=== PATIENT | female | born 1960 | race Caucasian/White ===

== ENCOUNTER 2019-11-16 16:28 | Inpatient (IN) ==
[2019-11-16] MEDS ORDERED: Ipratropium/Albuterol Neb 3 ML IH ONE (16:34)
[2019-11-16] MEDS ORDERED: Albuterol 2.5 MG/3 ML NEBULIZER IH ONE (16:34)
[2019-11-16] MEDS ORDERED: methylPREDNISolone 125 MG/2 ML VIAL IVP ONE (16:34)
[2019-11-16 16:54] LABS: Basophils % 0.2 %; Eosinophils % 0.3 %; Hematocrit 44.3 % (35.3-44.9); Hemoglobin 14.2 g/dL (11.5-15.4); Immature Granulocytes % 0.4 % (0-4); Lymphocytes # 1.1 K/mcL (0.6-4.6); Lymphocytes % 8.2 %; Mean Corpuscular HGB Conc 32.1 g/dL (31.6-35.5); Mean Corpuscular Hemoglobin 30.5 pg (28.0-33.3); Mean Corpuscular Volume 95.3 fL (83.0-100.0); Monocytes # 0.5 K/mcL (0.0-1.3); Monocytes % 3.5 %; Neutrophils # 11.3 K/mcL (1.6-8.9); Platelet Count 223 K/mcL (140-400); Red Blood Count 4.65 M/mcL (3.82-4.97); Red Cell Distribution Width 12.9 % (11.5-14.5); Segmented Neutrophils % 87.4 %; White Blood Count 12.9 K/mcL (4.3-11.1)
[2019-11-16 16:57] LABS: VBG HCO3 31 mEq/L (21-27); VBG PCO2 62 mmHg (41-51); VBG PH 7.31 pH Units (7.32-7.42); VBG PO2 104 mmHg (25-50)
[2019-11-16 16:58] LABS: Prothrombin Time 11.3 Seconds (9.4-12.1)
[2019-11-16 16:59] LABS: Activated Partial Thrombo Time 32.9 Seconds (26.0-36.0)
[2019-11-16] MEDS ORDERED: Isovue-370 500 ML BOTTLE IVP ONE (17:12)
[2019-11-16 17:29] LABS: Alanine Aminotransferase 29 Units/L (7-52); Albumin 4.2 g/dL (3.5-5.7); Albumin/Globulin Ratio 1.4 (1.1-2.2); Alkaline Phosphatase 86 Units/L (34-104); Aspartate Amino Transferase 29 Units/L (13-39); BUN/Creatinine Ratio 21 (6-26); Bilirubin,Direct 0.1 mg/dL (0.0-0.2); Bilirubin,Indirect 0.3 mg/dL (0.0-1.0); Bilirubin,Total 0.4 mg/dL (0.3-1.0); Blood Urea Nitrogen 13 mg/dL (8-23); Calcium 9.3 mg/dL (8.6-10.3); Carbon Dioxide 30 mEq/L (23-29); Chloride 102 mEq/L (98-107); Globulin 3.1 g/dL (2.4-3.5); Glucose 117 mg/dL (70-105); Osmolality,Calculated 289 (280-300); Potassium 4.2 mEq/L (3.5-5.1); Sodium 139 mEq/L (136-145); Total Protein 7.3 g/dL (6.4-8.9); Troponin I < 0.03 ng/mL (< 0.04); eGFR For African Americans > 60 (> 60); eGFR For Non-African Americans > 60 (> 60)
[2019-11-16] MEDS ORDERED: Azithromycin 500 MG in 0.9 % Sodium Chloride 250 ML IVPB ONE (17:35)
[2019-11-16] MEDS ORDERED: cefTRIAXone 1,000 MG in Water for inj. (sterile) 10 ML IVP ONE (17:35)
[2019-11-16] MEDS ORDERED: 0.9 % Sodium Chloride 1,000 ML IVC SCH (20:15)
[2019-11-16] MEDS ORDERED: *HR* OxyCODONE/APAP 7.5/325 TABLET PO PRN (22:39)
[2019-11-16] MEDS: *HR* Heparin 5,000 UNIT/ML VIAL SQ SCH (22:52)
[2019-11-16] MEDS: methylPREDNISolone 125 MG/2 ML VIAL IVP SCH (22:54)
[2019-11-16] MEDS ORDERED: *HR* LORazepam 2 MG/ML VIAL IVP ONE (22:59)
[2019-11-17] MEDS ORDERED: Ipratropium/Albuterol Neb 3 ML IH SCH
[2019-11-17] MEDS ORDERED: *HR* Metoprolol 5 MG/5 ML VIAL IVP ONE (00:10)
[2019-11-17 00:28] LABS: Adenovirus Not Detected (Not Detect); Bordetella Pertussis Not Detected (Not Detect); Chlamydophila pneumoniae Not Detected (Not Detect); Coronavirus 229E Not Detected (Not Detect); Coronavirus HKU1 Not Detected (Not Detect); Coronavirus NL63 Not Detected (Not Detect); Coronavirus OC43 Not Detected (Not Detect); Human Metapneumovirus DETECTED (Not Detect); Human Rhinovirus/Enterovirus Not Detected (Not Detect); Influenza A Subtype 2009 H1 Not Detected (Not Detect); Influenza B Not Detected (Not Detect); Mycoplasma pneumoniae Not Detected (Not Detect); Parainfluenza Virus 1 Not Detected (Not Detect); Parainfluenza Virus 2 Not Detected (Not Detect); Parainfluenza Virus 3 Not Detected (Not Detect); Parainfluenza Virus 4 Not Detected (Not Detect); Respiratory Syncytial Virus Not Detected (Not Detect)
[2019-11-17 01:11] LABS: ABG Base Excess 4 mEq/L (-2 to 3); ABG HCO3 33 mEq/L (21-27); ABG Oxygen Saturation 99 % (95-98); ABG PCO2 67 mmHg (35-45); ABG PO2 152 mmHg (85-104); ABG TCO2 35 mEq/L (20-26)
[2019-11-17] MEDS ORDERED: Morphine Sulfate 2 MG/ML SYRINGE IVP ONE (01:18)
[2019-11-17] MEDS: Ipratropium/Albuterol Neb 3 ML IH PRN (01:31)
[2019-11-17] MEDS ORDERED: Morphine Sulfate 2 MG/ML SYRINGE IVP PRN (02:52)
[2019-11-17 03:04] LABS: Basophils % 0.1 %; Hematocrit 43.9 % (35.3-44.9); Hemoglobin 14.1 g/dL (11.5-15.4); Immature Granulocytes % 0.3 % (0-4); Lymphocytes # 0.6 K/mcL (0.6-4.6); Lymphocytes % 6.7 %; Mean Corpuscular HGB Conc 32.1 g/dL (31.6-35.5); Mean Corpuscular Hemoglobin 30.8 pg (28.0-33.3); Mean Corpuscular Volume 95.9 fL (83.0-100.0); Mean Platelet Volume 11.1 fL (9.4-12.4); Monocytes # 0.1 K/mcL (0.0-1.3); Monocytes % 0.7 %; Neutrophils # 8.7 K/mcL (1.6-8.9); Platelet Count 240 K/mcL (140-400); Red Blood Count 4.58 M/mcL (3.82-4.97); Segmented Neutrophils % 92.2 %; White Blood Count 9.4 K/mcL (4.3-11.1)
[2019-11-17 03:12] LABS: INR 1.1; Prothrombin Time 12.1 Seconds (9.4-12.1)
[2019-11-17 03:29] LABS: Alanine Aminotransferase 30 Units/L (7-52); Albumin 4.3 g/dL (3.5-5.7); Albumin/Globulin Ratio 1.3 (1.1-2.2); Alkaline Phosphatase 87 Units/L (34-104); Aspartate Amino Transferase 30 Units/L (13-39); BUN/Creatinine Ratio 28 (6-26); Bilirubin,Total 0.3 mg/dL (0.3-1.0); Blood Urea Nitrogen 19 mg/dL (8-23); Calcium 9.4 mg/dL (8.6-10.3); Carbon Dioxide 31 mEq/L (23-29); Chloride 101 mEq/L (98-107); Globulin 3.2 g/dL (2.4-3.5); Glucose 131 mg/dL (70-105); Magnesium 2.3 mg/dL (1.6-2.6); Osmolality,Calculated 292 (280-300); Potassium 4.4 mEq/L (3.5-5.1); Sodium 139 mEq/L (136-145); Total Protein 7.5 g/dL (6.4-8.9); eGFR For African Americans > 60 (> 60); eGFR For Non-African Americans > 60 (> 60)
[2019-11-17 03:52] LABS: ABG Base Excess 6 mEq/L (-2 to 3); ABG HCO3 34 mEq/L (21-27); ABG Oxygen Saturation 100 % (95-98); ABG PCO2 68 mmHg (35-45); ABG PH 7.31 pH Units (7.32-7.45); ABG PO2 210 mmHg (85-104); ABG TCO2 37 mEq/L (20-26)
[2019-11-17] MEDS: Ipratropium/Albuterol Neb 3 ML IH SCH ×6 (04:24→23:48)
[2019-11-17] MEDS: *HR* Heparin 5,000 UNIT/ML VIAL SQ SCH ×3 (04:49→21:34)
[2019-11-17] MEDS: Ondansetron 4 MG/2 ML VIAL IVP PRN (04:50)
[2019-11-17] MEDS ORDERED: CefTRIAXone 1,000 MG VIAL ONE (08:43)
[2019-11-17] MEDS: methylPREDNISolone 125 MG/2 ML VIAL IVP SCH ×3 (08:52→23:31)
[2019-11-17] MEDS: cefTRIAXone 2,000 MG in Water for inj. (sterile) 20 ML IVP SCH (08:53)
[2019-11-17] MEDS ORDERED: cefTRIAXone 1,000 MG in Water for inj. (sterile) 10 ML IVP SCH (09:00)
[2019-11-17] MEDS: Gabapentin 300 MG CAPSULE PO SCH ×2 (14:57→21:33)
[2019-11-17] MEDS: Gabapentin 100 MG CAPSULE PO SCH ×2 (14:58→21:33)
[2019-11-17] MEDS: Azithromycin 500 MG in 0.9 % Sodium Chloride 250 ML IVPB SCH (16:58)
[2019-11-17] MEDS: *HR* LORazepam 0.5 MG TABLET PO PRN (21:34)
[2019-11-18 03:20] LABS: Hematocrit 40.6 % (35.3-44.9); Hemoglobin 12.8 g/dL (11.5-15.4); Mean Corpuscular HGB Conc 31.5 g/dL (31.6-35.5); Mean Corpuscular Hemoglobin 30.3 pg (28.0-33.3); Mean Corpuscular Volume 96.2 fL (83.0-100.0); Mean Platelet Volume 11.2 fL (9.4-12.4); Platelet Count 257 K/mcL (140-400); Red Blood Count 4.22 M/mcL (3.82-4.97)
[2019-11-18 03:33] LABS: BUN/Creatinine Ratio 39 (6-26); Blood Urea Nitrogen 30 mg/dL (8-23); Calcium 9.2 mg/dL (8.6-10.3); Carbon Dioxide 35 mEq/L (23-29); Chloride 103 mEq/L (98-107); Glucose 123 mg/dL (70-105); Osmolality,Calculated 304 (280-300); Potassium 4.6 mEq/L (3.5-5.1); Sodium 143 mEq/L (136-145); eGFR For African Americans > 60 (> 60); eGFR For Non-African Americans > 60 (> 60)
[2019-11-18] MEDS: Ipratropium/Albuterol Neb 3 ML IH SCH ×6 (03:34→23:40)
[2019-11-18] MEDS: *HR* Heparin 5,000 UNIT/ML VIAL SQ SCH ×3 (05:25→21:42)
[2019-11-18] MEDS: Gabapentin 300 MG CAPSULE PO SCH ×2 (07:19→14:04)
[2019-11-18] MEDS: Gabapentin 100 MG CAPSULE PO SCH ×2 (07:19→14:04)
[2019-11-18] MEDS: cefTRIAXone 2,000 MG in Water for inj. (sterile) 20 ML IVP SCH (07:46)
[2019-11-18] MEDS: methylPREDNISolone 125 MG/2 ML VIAL IVP SCH ×2 (07:46→16:27)
[2019-11-18] MEDS: Fluticasone Propionate Nasal 50 MCG/SPRAY BOTTLE NS SCH (16:27)
[2019-11-18] MEDS: Azithromycin 500 MG in 0.9 % Sodium Chloride 250 ML IVPB SCH (17:07)
[2019-11-18] MEDS: Ipratropium/Albuterol Neb 3 ML IH PRN (21:41)
[2019-11-18] MEDS: Ondansetron 4 MG/2 ML VIAL IVP PRN (21:42)
[2019-11-18] MEDS: hydrALAZINE 25 MG TABLET PO SCH (21:42)
[2019-11-19] MEDS: *HR* LORazepam 0.5 MG TABLET PO PRN (00:26)
[2019-11-19] MEDS: methylPREDNISolone 125 MG/2 ML VIAL IVP SCH (00:26)
[2019-11-19] MEDS: hydrALAZINE 25 MG TABLET PO SCH ×4 (00:30→22:58)
[2019-11-19 02:12] LABS: Hematocrit 37.3 % (35.3-44.9); Mean Corpuscular HGB Conc 32.2 g/dL (31.6-35.5); Mean Corpuscular Hemoglobin 31.2 pg (28.0-33.3); Mean Corpuscular Volume 96.9 fL (83.0-100.0); Mean Platelet Volume 11.4 fL (9.4-12.4); Platelet Count 253 K/mcL (140-400); Red Blood Count 3.85 M/mcL (3.82-4.97); Red Cell Distribution Width 12.9 % (11.5-14.5); White Blood Count 16.4 K/mcL (4.3-11.1)
[2019-11-19 02:30] LABS: BUN/Creatinine Ratio 41 (6-26); Blood Urea Nitrogen 28 mg/dL (8-23); Calcium 8.9 mg/dL (8.6-10.3); Carbon Dioxide 33 mEq/L (23-29); Chloride 102 mEq/L (98-107); Glucose 145 mg/dL (70-105); Osmolality,Calculated 294 (280-300); Potassium 4.1 mEq/L (3.5-5.1); Sodium 138 mEq/L (136-145); eGFR For African Americans > 60 (> 60); eGFR For Non-African Americans > 60 (> 60)
[2019-11-19] MEDS: Ipratropium/Albuterol Neb 3 ML IH SCH ×6 (03:19→23:44)
[2019-11-19] MEDS: *HR* Heparin 5,000 UNIT/ML VIAL SQ SCH ×3 (05:43→21:33)
[2019-11-19] MEDS: cefTRIAXone 2,000 MG in Water for inj. (sterile) 20 ML IVP SCH (09:30)
[2019-11-19] MEDS: Fluticasone Propionate Nasal 50 MCG/SPRAY BOTTLE NS SCH (09:30)
[2019-11-19] MEDS: Azithromycin 500 MG in 0.9 % Sodium Chloride 250 ML IVPB SCH (17:25)
[2019-11-20] MEDS: Ipratropium/Albuterol Neb 3 ML IH SCH ×3 (04:24→11:19)
[2019-11-20 05:11] LABS: Hematocrit 39.3 % (35.3-44.9); Hemoglobin 12.5 g/dL (11.5-15.4); Mean Corpuscular HGB Conc 31.8 g/dL (31.6-35.5); Mean Corpuscular Hemoglobin 30.9 pg (28.0-33.3); Mean Platelet Volume 11.1 fL (9.4-12.4); Platelet Count 251 K/mcL (140-400); Red Blood Count 4.05 M/mcL (3.82-4.97); Red Cell Distribution Width 12.9 % (11.5-14.5); White Blood Count 12.4 K/mcL (4.3-11.1)
[2019-11-20 05:30] LABS: BUN/Creatinine Ratio 39 (6-26); Blood Urea Nitrogen 30 mg/dL (8-23); Calcium 8.7 mg/dL (8.6-10.3); Carbon Dioxide 35 mEq/L (23-29); Chloride 102 mEq/L (98-107); Glucose 83 mg/dL (70-105); Osmolality,Calculated 297 (280-300); Potassium 3.7 mEq/L (3.5-5.1); Sodium 141 mEq/L (136-145); eGFR For African Americans > 60 (> 60); eGFR For Non-African Americans > 60 (> 60)
[2019-11-20] MEDS: *HR* Heparin 5,000 UNIT/ML VIAL SQ SCH (05:35)
[2019-11-20] MEDS: Ondansetron 4 MG/2 ML VIAL IVP PRN (06:02)
[2019-11-20] MEDS: cefTRIAXone 2,000 MG in Water for inj. (sterile) 20 ML IVP SCH (07:38)
[2019-11-20] MEDS: hydrALAZINE 25 MG TABLET PO SCH (07:39)
[2019-11-20] MEDS: Fluticasone Propionate Nasal 50 MCG/SPRAY BOTTLE NS SCH (07:39)
[2019-11-20] MEDS ORDERED: predniSONE 20 MG TABLET PO SCH (09:00)
[2019-11-20 10:42] VITALS: BP 175/92
== END 2019-11-20 13:01 | disposition hospice, home (50) ==
LOC: EMEROOARM 16:28 → 2NENU 16:28
PROVIDERS: ADMIT Internal Medicine; ATTEND Internal Medicine

== ENCOUNTER 2020-11-15 00:27 | Observation (INO) ==
[2020-11-15] MEDS ORDERED: methylPREDNISolone 125 MG/2 ML VIAL IVP ONE (00:33)
[2020-11-15] MEDS ORDERED: Ipratropium 1 PUFF INHALER IH ONE (00:39)
[2020-11-15 00:55] LABS: Basophils % 0.1 %; Eosinophils % 0.1 %; Hematocrit 40.4 % (35.3-44.9); Immature Granulocytes % 0.4 % (0-4); Lymphocytes % 12.3 %; Mean Corpuscular HGB Conc 32.2 g/dL (31.6-35.5); Mean Corpuscular Hemoglobin 29.6 pg (28.0-33.3); Mean Platelet Volume 10.6 fL (9.4-12.4); Monocytes # 0.7 K/mcL (0.0-1.3); Neutrophils # 6.4 K/mcL (1.6-8.9); Platelet Count 170 K/mcL (140-400); Red Blood Count 4.39 M/mcL (3.82-4.97); Segmented Neutrophils % 79.1 %; White Blood Count 8.1 K/mcL (4.3-11.1)
[2020-11-15 00:57] LABS: VBG HCO3 28 mEq/L (21-27); VBG PCO2 47 mmHg (41-51); VBG PH 7.38 pH Units (7.32-7.42); VBG PO2 96 mmHg (25-50)
[2020-11-15 01:30] LABS: BUN/Creatinine Ratio 21 (6-26); Blood Urea Nitrogen 15 mg/dL (8-23); Calcium 8.8 mg/dL (8.6-10.3); Carbon Dioxide 25 mEq/L (23-29); Chloride 103 mEq/L (98-107); Glucose 111 mg/dL (70-105); Osmolality,Calculated 286 (280-300); Potassium 4.2 mEq/L (3.5-5.1); Sodium 137 mEq/L (136-145); Troponin I 0.16 ng/mL (< 0.04); eGFR For African Americans > 60 (> 60); eGFR For Non-African Americans > 60 (> 60)
[2020-11-15] MEDS ORDERED: Aspirin 81 MG TAB.CHEW PO ONE (01:39)
[2020-11-15] MEDS ORDERED: Isovue-370 500 ML BOTTLE IVP ONE (01:39)
[2020-11-15 02:07] LABS: Influenza A PCR Negative (Negative); Influenza B PCR Negative (Negative); Resp. Syncytial Virus PCR Negative (Negative)
[2020-11-15 02:10] LABS: SARS-CoV-2 by PCR (In House) Positive (Negative)
[2020-11-15] MEDS ORDERED: Acetaminophen 325 MG TABLET PO PRN (04:39)
[2020-11-15] MEDS ORDERED: Naloxone 0.4 MG/ML INJ IVP PRN (04:39)
[2020-11-15] MEDS ORDERED: Ondansetron 4 MG/2 ML VIAL IVP PRN (04:39)
[2020-11-15 06:50] LABS: Lactate Dehydrogenase 179 Units/L (140-271)
[2020-11-15] MEDS ORDERED: cefTRIAXone 1,000 MG in Water for inj. (sterile) 10 ML IVP SCH (09:00)
[2020-11-15] MEDS ORDERED: *HR* Enoxaparin 30 MG/0.3 ML SYRINGE SQ SCH (09:00)
[2020-11-15] MEDS ORDERED: Azithromycin 500 MG in 0.9 % Sodium Chloride 250 ML IVPB SCH (09:00)
[2020-11-15 10:01] LABS: C-Reactive Protein 28 mg/L (Less than 10)
[2020-11-15] MEDS: Ipratropium 1 PUFF INHALER IH SCH ×3 (16:23→23:28)
[2020-11-16] MEDS ORDERED: Melatonin 3 MG TABLET PO PRN (00:01)
[2020-11-16] MEDS: Ipratropium 1 PUFF INHALER IH SCH ×3 (04:15→11:18)
[2020-11-16 05:10] LABS: Basophils % 0.1 %; Hematocrit 38.5 % (35.3-44.9); Hemoglobin 12.3 g/dL (11.5-15.4); Immature Granulocytes % 0.3 % (0-4); Lymphocytes % 10.8 %; Mean Corpuscular HGB Conc 31.9 g/dL (31.6-35.5); Mean Corpuscular Hemoglobin 29.7 pg (28.0-33.3); Mean Platelet Volume 10.9 fL (9.4-12.4); Monocytes # 0.7 K/mcL (0.0-1.3); Monocytes % 7.2 %; Neutrophils # 7.4 K/mcL (1.6-8.9); Platelet Count 179 K/mcL (140-400); Red Blood Count 4.14 M/mcL (3.82-4.97); Red Cell Distribution Width 12.7 % (11.5-14.5); Segmented Neutrophils % 81.6 %; White Blood Count 9.1 K/mcL (4.3-11.1)
[2020-11-16 05:27] LABS: BUN/Creatinine Ratio 33 (6-26); Blood Urea Nitrogen 20 mg/dL (8-23); Calcium 8.4 mg/dL (8.6-10.3); Carbon Dioxide 27 mEq/L (23-29); Chloride 106 mEq/L (98-107); Glucose 143 mg/dL (70-105); Magnesium 1.8 mg/dL (1.6-2.6); Osmolality,Calculated 295 (280-300); Potassium 4.1 mEq/L (3.5-5.1); Sodium 140 mEq/L (136-145); eGFR For African Americans > 60 (> 60); eGFR For Non-African Americans > 60 (> 60)
[2020-11-16] MEDS ORDERED: *HR* Enoxaparin 40 MG/0.4 ML SYRINGE SQ SCH (06:00)
[2020-11-16 07:54] VITALS: BP 118/76
[2020-11-16] MEDS ORDERED: Azithromycin 250 MG TABLET PO SCH (09:00)
== END 2020-11-16 13:50 | disposition hospice, home (50) ==
LOC: EMEROOARM 00:27 → 2NENU 00:27 → SUATTDRO 03:38 → 2NENU 04:20
PROVIDERS: ADMIT Student in an Organized Health Care Education/Training Program; ATTEND Family Medicine